=== PATIENT | male | born 1995 | race Hispanic/Latino ===

== ENCOUNTER 2017-08-04 12:37 | Outpatient (CLI) | payer BC ==
--- NOTE | 2017-08-04 15:06 | ULT ---
ULTRASOUND SCROTUM TESTICLES DOPPLER DUPLEX: DATE: 08-04-17 HISTORY: 22-year-old male with scrotal pain. TECHNIQUE: Borden-scale evaluation of intrascrotal contents. Color flow Doppler and spectral waveform analysis of the testicles. FINDINGS: Right testicle: 3.2 x 4.4 x 2.5 cm Left testicle: 3.2 x 4.9 x 2.5 cm Right epididymal head: 1.2 x 1.2 cm Left epididymal head: 1.3 x 1.2 cm. There is a 0.7 x 0.5 x 0.6 cm septated cyst at the left epididyma l head. Testicular echogenicity: Normal and homogeneous Testicular blood flow: Present bilaterally Intratesticular mass: None Hydrocele: Minimal on right and small on left Varicocele: None IMPRESSION: 1. No evidence of testicular abnormality. 2. Incidental finding of a septated cyst at the left epididymal head. 3. Minimal hydroceles. 4. Otherwise negative. CHRISTIAN Herrera POS: [facility]
== END 2017-08-04 12:38 | disposition home or self-care (01) ==
LOC: ULT 12:37
PROVIDERS: ATTEND Family Medicine
DX: N50.819 Testicular pain, unspecified (principal)
CPT/HCPCS: 76870; 93976